=== PATIENT | male | born 2000 | race Hispanic/Latino ===

== ENCOUNTER → 2025-02-06 | Outpatient (CLI) | payer OTHER | LOC: M OUTALCOH 10:16 | PROVIDERS: ATTEND Psychiatry & Neurology Psychiatry | DX: F10.10 Alcohol abuse, uncomplicated (principal) ==

== ENCOUNTER → 2025-03-08 | Outpatient (RCR) | payer OTHER | LOC: M OUTALCOH 02-17 13:13 | PROVIDERS: ATTEND Psychiatry & Neurology Psychiatry | DX: F10.10 Alcohol abuse, uncomplicated (principal) ==

== ENCOUNTER 2025-05-09 09:44 | Outpatient (RCR) | payer OTHER | END 2025-06-08 | LOC: M OUTALCOH 09:44 | PROVIDERS: ATTEND Psychiatry & Neurology Psychiatry | DX: F10.10 Alcohol abuse, uncomplicated (principal) ==

== ENCOUNTER 2025-08-08 02:36 | Emergency (ER) | payer OTHER ==
[~2025-08-08] VITALS: Ht 162.6 cm; Wt 81.8 kg
[2025-08-08] MEDS: HALOPERIDOL LACTATE 5 MG/ML VIAL IM ONE (03:08)
[2025-08-08] MEDS: diphenhydrAMINE 50 MG/ML VIAL IM ONE (03:09)
[2025-08-08 03:18] LABS: PLATELET COUNT, AUTOMATED 281 10^3/uL (150-450)
[2025-08-08 03:44] LABS: ALT/SGPT 40 U/L (7.0-40); AST/SGOT 28 U/L (<34); CALCIUM LEVEL 9.1 MG/DL (8.5-10.1); CARBON DIOXIDE LEVEL 28 MMOL/L (20-31); CHLORIDE LEVEL 107 MMOL/L (98-107); CREATININE FOR GFR 1.12 MG/DL (0.70-1.30); GLOMERULAR FILTRATION RATE > 90.0 (>60); POTASSIUM SERUM 3.6 MMOL/L (3.5-5.1); SALICYLATE LEVEL < 3.0 MG/DL (<30); SODIUM LEVEL 147 MMOL/L (136-145)
[2025-08-08 03:53] LABS: ETHYL ALCOHOL (ETHANOL) 0.298 % (0.000-0.010)
[2025-08-08] MEDS ORDERED: HOME MED LIST COMPLETE! XX SCH (07:20)
[2025-08-08] MEDS: UNRESOLVED CLARIFICATION ENTRY XX STA (07:51)
[2025-08-08 08:49] VITALS: BP 121/68; TEMP 97; O2SAT 98
== END 2025-08-08 08:53 | disposition home or self-care (01) ==
LOC: M ED 02:36
DX: F10.129 Alcohol abuse with intoxication, unspecified (principal); Z79.899 Other long term (current) drug therapy
CPT/HCPCS: 80048; 80076; 80143; 82077; 84443; 85027; 96372; 99285; J1200; J1630; J2060

== ENCOUNTER → 2025-08-30 | Outpatient (CLI) | payer OTHER | LOC: M OUTALCOH 12:29 | PROVIDERS: ATTEND Psychiatry & Neurology Psychiatry | DX: F10.20 Alcohol dependence, uncomplicated (principal) ==

== ENCOUNTER 2025-09-04 09:44 | Outpatient (RCR) | payer OTHER | END 2025-09-08 | LOC: M OUTALCOH 09:44 | PROVIDERS: ATTEND Psychiatry & Neurology Psychiatry | DX: F10.20 Alcohol dependence, uncomplicated (principal) ==

== ENCOUNTER 2025-09-21 07:52 | Outpatient (RCR) | payer OTHER | END 2025-10-08 | LOC: M OUTALCOH 07:52 | PROVIDERS: ATTEND Psychiatry & Neurology Psychiatry | DX: F10.20 Alcohol dependence, uncomplicated (principal) ==

== ENCOUNTER 2025-10-05 04:22 | Emergency (ER) | payer OTHER ==
[2025-10-05 05:49] LABS: PLATELET COUNT, AUTOMATED 317 10^3/uL (150-450)
[2025-10-05 06:16] LABS: ALT/SGPT 50 U/L (7.0-40); AST/SGOT 47 U/L (<34); CALCIUM LEVEL 9.5 MG/DL (8.5-10.1); CARBON DIOXIDE LEVEL 26 MMOL/L (20-31); CHLORIDE LEVEL 105 MMOL/L (98-107); CREATININE FOR GFR 1.23 MG/DL (0.70-1.30); GLOMERULAR FILTRATION RATE 84.1 (>60); POTASSIUM SERUM 3.7 MMOL/L (3.5-5.1); SALICYLATE LEVEL < 3.0 MG/DL (<30); SODIUM LEVEL 147 MMOL/L (136-145)
[2025-10-05 06:34] LABS: ETHYL ALCOHOL (ETHANOL) 0.305 % (0.000-0.010)
[2025-10-05] MEDS ORDERED: HOME MED LIST COMPLETE! XX SCH (07:45)
[2025-10-05 12:52] VITALS: BP 133/76; TEMP 98.2; O2SAT 98
== END 2025-10-05 12:54 | disposition home or self-care (01) ==
LOC: M ED 04:22
DX: F10.129 Alcohol abuse with intoxication, unspecified (principal); F17.200 Nicotine dependence, unspecified, uncomplicated

== ENCOUNTER 2025-10-12 08:59 | Outpatient (RCR) | payer OTHER | END 2025-11-08 | LOC: M OUTALCOH 08:59 | PROVIDERS: ATTEND Psychiatry & Neurology Psychiatry | DX: F10.10 Alcohol abuse, uncomplicated (principal) ==

== ENCOUNTER 2025-10-12 10:41 | Outpatient (RCR) | payer OTHER | END 2025-11-08 | LOC: M OUTALCOH 10:41 | PROVIDERS: ATTEND Psychiatry & Neurology Psychiatry | DX: F10.10 Alcohol abuse, uncomplicated (principal) ==